=== PATIENT | male | born 1935 | race Caucasian/White ===

== ENCOUNTER 2018-03-29 10:53 | Outpatient (CLI) | payer MEDICARE, BC ==
[~2018-03-29] VITALS: Ht 182.9 cm; Wt 84.1 kg
--- NOTE | ~2018-03-29 | HEMODYNAMI ---
PATIENT:LINNEA HERRERA MEDICAL RECORD: [id number] : 33 LOCATION:[facility] ADMISSION DATE: 03/29/18 Generatedon:03/29/201813:32 Patient name: LINNEA HERRERA Patient #: [id number] SSN: D OB: 1935 Date of study: 03/29/2018 Page: Of Hemodynamic Procedure Report Patient Data Patient Demographics Procedure consent was obtained First Name: LINNEA Gender: Male Last Name: JAVIER : 1935 Patient #: [id number] Age: 82 year(s) Race: Additional ID: [id number] Contact details [address]: [address] [place], [place] [address] State: [place] City: [place] Zip code: [address] Admission Admission Data Admission Date: 03/29/2018 Admission Time: 10:53 Procedure Procedure Types Cath Procedure Diagnostic Procedure LHC LHC w/Coronaries Sedation Charges Moderate Sedation up to 15 minutes Procedure Description Procedure Date Procedure Date: 03/29/2018 Procedure Start Time: 13:03 Procedure End Time: 13:29 Procedure Staff Name Function Ulises Barrientos MD Performing Physician Temi Corley RT Monitor Jimmy Malloy RT Scrub Clifton Paz RN Nurse Procedure Data Cath Procedure Fluoroscopy Diagnostic fluoroscopy Total fluoroscopy Time: 5.2 time: 5.2 min min Diagnostic fluoroscopy Total fluoroscopy dose: dose: 1098 mGy 1098 mGy Contrast Material Contrast Material Type Amount (ml) Isovue 300 97 Entry Location Entry Primary Successful Side Size Upsize Upsize Entry Closure Arreguin ccessful Closure Location (Fr) 1 (Fr) 2 (Fr) Remarks Device Remarks Radial Right 6 Fr Mechanical artery Short Compression Estimated blood loss: 5 ml Procedure Complications No complications Procedure Medications Medication Administration Route Dosage 0.9% NaCl I.V. 100 ml/hr Oxygen etCO2 Nasal cannula 2 l/min Heparin Flush Bag added to field 2 bags (1000units/500ml NS) Lidocaine 2% added to field 20 Radial Cocktail added to field 1 syringe (Verapomil 2mg/Nitro 400mcg/Heparin 1500units) Versed I.V. 2 mg Fentanyl I.V. 100 mcg Radial Cocktail I.A. 1 syringe (Verapomil 2mg/Nitro 400mcg/Heparin 1500units) Hemodynamics Rest Heart Rate: 73 (bpm) Pressure Samples Time Site Value (mmHg) Purpose Heart Use Rate(bpm) 13:08 LV 132/-4,12 Snapshot 80 13:09 AO 128/60(86) Pullback 79 13:09 LV 130/-7,16 Pullback 79 Gradients Valve Time Site 1 Site 2 Mean SEP/DFP Peak To Heart Use (mmHg) (sec/min) Peak Rate (mmHg) (bpm) Aortic 13:09 LV AO 8 23 2 79 130/-7,16 128/60(86) Calculations Valve P-P Mean Valve Index Valve Source Name Gradient Area Flow (cm2) Aortic 2 8 2 8 Snapshots Pre Cath Intra NCS Post Cath Vital Signs Time Heart Resp SPO2 etCO2 NIBP (mmHg) Rhythm Pain Sedation Rate (ipm) (%) (mmHg) Status Level (bpm) 12:52:57 72 18 100 28.4 149/78(117) NSR 0 (11) 10(A) , No pain 12:57:14 76 21 100 9.7 134/71(117) NSR 0 (11) 10(A) , No pain 13:01:23 73 20 98 23.9 147/71(112) NSR 0 (11) 10(A) , No pain 13:05:40 76 17 97 28.4 146/70(97) NSR 0 (11) 10(A) , No pain 13:09:55 75 20 95 25.4 121/66(94) NSR 0 (11) 9(A) , No pain 13:14:05 79 17 95 17.9 118/60(91) NSR 0 (11) 9(A) , No pain 13:18:13 76 21 96 23.9 119/64(85) NSR 0 (11) 9(A) , No pain 13:22:19 76 17 98 23.9 122/67(91) NSR 0 (11) 9(A) , No pain 13:26:27 75 18 97 26.9 118/66(88) NSR 0 (11) 9(A) , No pain Medications Time Medication Route Dose Verified Delivered Reason Notes Effectiveness by by 12:49:51 0.9% NaCl I.V. 100 Clifton Clifton Per ml/hr Jackson Paz physician RN RN 12:50:08 Oxygen etCO2 2 l/min Clifton Clifton Per Nasal Jackson gatica cannula RN RN 12:50:21 Heparin Flush added 2 bags Clifton Clifton used for Bag to Jackson Paz procedure (1000units/500ml field RN RN NS) 12:50:38 Lidocaine 2% added 20ml Clifton Clifton for local to vial Lorigan Jackson anesthetic field RN RN 12:51:04 Radial Cocktail added 1 Clifton Clifton used for (Verapomil to syringe Jackson Paz procedure 2mg/Nitro field RN RN 400mcg/Heparin 1500units) 13:01:37 Versed I.V. 2 mg Clifton Clifton for sedation Jackson Paz RN RN 13:01:46 Fentanyl I.V. 100 mcg Clifton Clifton for sedation Jackson Paz RN RN 13:08:01 Radial Cocktail I.A. 1 Clifton Ulises for (Verapomil syringe Jackson Barrientos MD vasodilation 2mg/Nitro RN 400mcg/Heparin 1500units) Procedure Log Time Note 12:32:41 Informed consent obtained and on chart 12:32:49 Diagnostic Cath Status : Elective 12:33:56 Jimmy Malloy RT(R) sent for patient. Start room use. 12:33:57 Time tracking: Regular hours (M-F 7:00 - 5:00) 12:34:01 Plan of Care:Hemodynamics will remain stable., Cardiac rhythm will remain stable., Comfort level will be maintained., Respiratory function will remain adequate., Patient/ family verbilizes understanding of procedure., Procedure tolerated without complication., Recovers from procedure without complications.. 12:40:49 Patient received from Pre/Post Procedure Room to CCL 2 Alert and oriented. Tansferred to table in Supine position. 12:40:50 Warm blankets applied, and stewart hugger turned on for patient comfort. 12:40:51 Correct patient and procedure confirmed by team. 12:40:51 ECG and BP/O2 sat monitors applied to patient. 12:49:51 0.9% NaCl 100 ml/hr I.V. was administered by Clifton Lorigan RN; Per physician; 12:50:08 Oxygen 2 l/min etCO2 Nasal cannula was administered by Clifton Paz RN; Per physician; 12:50:21 Heparin Flush Bag (1000units/500ml NS) 2 bags added to field was administered by Clifton Paz RN; used for procedure; 12:50:38 Lidocaine 2% 20ml vial added to field was administered by Clifton Paz RN; for local anesthetic; 12:51:04 Radial Cocktail (Verapomil 2mg/Nitro 400mcg/Heparin 1500units) 1 syringe added to field was administered by Clifton Paz RN; used for procedure; 12:51:48 Vital chart was started 12:51:49 Baseline sample Acquired. 12:51:53 Rhythm: sinus rhythm 12:51:54 Full Disclosure recording started 12:51:58 H&P Date Dictated: 03/29/2018 Within 30 days and on chart., H&P Addendum completed by physician on day of procedure. (MUST COMPLETE FOR ALL OUTPATIENTS). 12:52:00 Pre-procedure instructions explained to patient. 12:52:00 Pre-op teaching completed and patient verbalized understanding. 12:52:01 Family in waiting room. 12:52:03 Patient NPO since Midnight. 12:52:05 Is the patient allergic to Iodine/contrast media? No. 12:52:06 Was the patient premedicated? No 12:55:29 Is patient on blood thinner?No 12:55:30 Patient diabetic? No. 12:55:44 Previous problem with sedation/anesthesia? No ? 12:55:46 Snore? Yes 12:55:47 Sleep apnea? No 12:55:48 Deviated septum? No 12:55:48 Opens mouth fully? Yes 12:55:49 Sticks out tongue? Yes 12:55:52 Airway obstruction? Yes copd 12:55:56 Dentures? Yes in tight 12:55:59 Pre procedure: right dorsailis pedis pulse 2+ Normal; easily identifiable; not easily obliterated 12:56:01 Pre procedure: left dorsailis pedis pulse 2+ Normal; easily identifiable; not easily obliterated 12:56:03 Patient pain scale 0/10 ?. 12:56:11 IV patent on arrival in right forearm with 0.9% NaCl at [facility]. 12:56:13 Lab results completed and on chart. 12:56:18 Right Radial & Right Groin area was prepped with chlora-prep and draped in sterile fashion 12:56:19 Alarms reviewed by [facility] N. 12:56:19 Sharps counted by scrub and verified by R.N. 12:56:20 Physician arrived 12:56:21 --------ALL STOP TIME OUT------ 12:56:21 Final Timeout: patient, procedure, and site verified with staff and physician. All members of the team are in agreement. 12:56:24 Right Radial & Right Groin site verified by team. 12:56:26 Physical assessment completed. ASA score P 2 - A patient with mild systemic disease as per Ulises Barrientos MD. 12:56:30 Sedation plan: IV Moderate Sedation Medication:Versed, Fentanyl 12:56:36 Use device set Radial Dx or PCI 12:56:37 ACIST Syringe (69889) opened to sterile field. 12:56:37 Medline Cath Pack ([id number]) opened to sterile field. 12:56:37 Bag Decanter (2002S) opened to sterile field. 12:56:38 DIAGNOSTIC WIRE .035 260cm J wire (630236) opened to sterile field. 12:56:38 ACIST Hand Control (94966) opened to sterile field. 12:56:39 ACIST Manifold (58324) opened to sterile field. 12:56:39 Tegaderm 4 x 4 (1626W) opened to sterile field. 12:56:40 MBrace Wrist Support ([id number]) opened to sterile field. 12:56:41 SHEATH 6Fr Prelude Radial ([id number]) opened to sterile field. 12:59:19 Zero performed for pressure channel P1 13:01:37 Versed 2 mg I.V. was administered by Clifton Paz RN; for sedation; 13:01:46 Fentanyl 100 mcg I.V. was administered by Clifton Paz RN; for sedation; 13:02:59 Procedure started. 13:03:05 Local anesthetic to right radial artery with Lidocaine 2% by Ulises Barrientos MD.INITIAL ACCESS ONLY 13:04:15 Zero performed for pressure channel P1 13:06:51 A 6 Fr Short sheath was inserted into the Right Radial artery 13:07:10 5 Fr ultimate performa 1 guide catheter was inserted over the wire 13:08:01 Radial Cocktail (Verapomil 2mg/Nitro 400mcg/Heparin 1500units) 1 syringe I.A. was administered by Ulises Barrietnos MD; for vasodilation; 13:08:49 LV hemodynamics recorded. 13:08:50 LV gram done using SLATER 13:08:53 Injector settings: Ml/sec: 5, Volume: 15, 13:09:28 EF : 60 % 13:10:27 LCA angiography performed. 13:10:30 Injector settings: Ml/sec: 3, Volume: 6, 13:13:02 RCA angiography performed. 13:13:06 Injector settings: Ml/sec: 3, Volume: 6, 13:25:16 Catheter removed. 13:25:20 TR BAND Standard ([id number]) opened to sterile field. 13:27:16 Sheath removed intact; hemostasis achieved with Mechanical Compression to the Right Radial artery. 13:27:21 Procedure ended.(Physican Out) 13:27:33 Fluoroscopy time 05.20 minutes. 13:27:40 Fluoroscopy dose: 1098 mGy 13:27:40 Flurop Dose total: 1098 13:28:30 Contrast amount:Isovue 300 97ml. 13:28:31 Sharps counted by scrub and verified by R.N. 13:28:34 TR band inflated with 10cc of air. 13:28:35 Insertion/operative site no bleeding no hematoma. 13:28:40 Post right radial artery:stable 13:28:43 Post Procedure Pulses reassessed and unchanged 13:28:45 Post procedure rhythm: unchanged. 13:28:48 Estimated blood loss: 5 ml 13:28:49 Post procedure instruction explained to patient.Patient verbalizes understanding. 13:28:49 Patient needs reinforcement of post procedure teaching. 13:29:00 Procedure type changed to Cath procedure, Diagnostic procedure, LHC, LHC w/Coronaries, Sedation Charges, Moderate Sedation up to 15 minutes 13:29:01 Procedure and supply charges have been captured, reviewed, submitted and are correct. 13:29:05 Procedure Complication : No complications 13:29:08 Vital chart was stopped 13:29:08 See physician's report for complete and final results. 13:29:11 Report given to Pre/Post Procedure Room. 13:29:14 Patient transfered to Pre/Post Procedure Room with Stretcher. 13:29:16 Procedure ended. 13:29:16 Full Disclosure recording stopped 13:29:25 End room use (Document Last) Device Usage Item Name Manufacture Quantity Catalog Number Hospital Part Current M inimal Lot# / Charge Number Stock Stock Serial# Code ACIST Syringe Acist 1 43252 308743 965311 717348 2 0 (34629) [employer] Medline Cath Medline 1 [id number] 752110 21487 438645 5 Pack ([id number]) Bag Decanter Microtek 1 2001S 293585 40605 359957 5 (2001S) [employer]. DIAGNOSTIC WIRE [place] 1 [id number] 350459 147427 420328 3 0 .035 260cm J wire (630154) ACIST Hand Acist 1 97538 007865 669075 051432 5 Control (40299) [employer] ACIST Manifold Acist 1 22021 549664 789607 966172 5 (80430) [employer] Tegaderm 4 x 4 3M 1 1626W 982430 383984 331569 5 (1626W) MBrace Wrist Advanced 1 140-0250-00 794550 85721 919840 5 Support Vascular ([id number]) Dynamics SHEATH 6Fr Merit 1 [id number] 685249 766270 240823 5 Prelude Radial Medical ([id number]) TR BAND Terumo 1 [id number] 154859 606765 870282 4 0 Standard ([id number]) Signature Audit [place] Stage Time Signature Unsigned Intra-Procedure 03/29/2018 Temi Corley 1:32:13 PM RT(R) Signatures Monitor : Temi Corley RT Signature : Date : Time : [facility] [address] [place] [id number]
[2018-03-29 11:16] VITALS: BP 171/80; Ht 182.9 cm; Wt 84.1 kg
[2018-03-29 11:40] LABS: BASOPHILS 0.6 % (0-2); EOSINOPHILS 3.8 % (0-7); HEMATOCRIT 48.8 % (42.0-54.0); HEMOGLOBIN 16.2 g/dL (13.5-17.5); IMMATURE GRANULOCYTES 0.2 % (0-5); LYMPHOCYTES 40.8 % (15-50); MCH 30.5 pg (26.0-34.0); MCHC 33.2 g/dL (31.0-37.0); MCV 91.7 fL (80.0-100.0); MEAN PLATELET VOLUME 10.3 fL (7.4-10.4); MONOCYTES 9.9 % (2-11); NEUTROPHILS 44.7 % (40-80); PLATELET COUNT 160 10x3/uL (130-400); RBC 5.32 10x6/uL (4.20-6.10); RDW 15.4 % (11.5-14.5); WBC 6.4 10x3/uL (4.8-10.8)
[2018-03-29 12:03] LABS: ANION GAP 9.3 mmol/L (8-16); CALCIUM 9.5 mg/dL (8.5-10.1); CREATININE - SERUM 1.3 mg/dL (0.6-1.3); POTASSIUM - SERUM 4.3 mmol/L (3.5-5.1)
== END 2018-03-29 15:45 | disposition home or self-care (01) ==
LOC: D.CATH 10:53
PROVIDERS: Internal Medicine Cardiovascular Disease
DX: R55 Syncope and collapse (principal); I25.10 Atherosclerotic heart disease of native coronary artery without angina pectoris; Z01.812 Encounter for preprocedural laboratory examination

== ENCOUNTER 2018-04-21 06:39 | Outpatient (CLI) | payer MEDICARE, BC ==
[~2018-04-21] VITALS: Ht 182.9 cm; Wt 85.0 kg
--- NOTE | ~2018-04-21 | HEMODYNAMI ---
PATIENT:LINNEA HERRERA MEDICAL RECORD: [id number] : 33 LOCATION:[facility] ADMISSION DATE: 04/21/18 Generatedon:04/21/201810:29 Patient name: LINNEA HERRERA Patient #: [id number] SSN: D OB: 1935 Date of study: 04/21/2018 Page: Of Hemodynamic Procedure Report Patient Data Patient Demographics Procedure consent was obtained First Name: LINNEA Gender: Male Last Name: JAVIER : 1935 Patient #: [id number] Age: 82 year(s) Race: Additional ID: [id number] Contact details Address: [address] State: [place] City: [place] Zip code: [address] Past Medical History Allergies: No known allergies Admission Admission Data Admission Date: 04/21/2018 Admission Time: 6:39 Lab Results Lab Result Date: 04/21/2018 Lab Result Time: 0:00 Biochemistry Name Units Result Min Max BUN mg/dl 19 --(----)*- 7 18 Creatinine mg/dl 1.4 --(----)*- 0.6 1.3 CBC Name Units Result Min Max Hemoglobin g/dl 15.6 --(--*-)-- 13.5 17.5 Procedure Procedure Types Cath Procedure Diagnostic Procedure Sedation Charges Moderate Sedation up to 15 minutes PCI Procedure Coronary Stent Coronary Stent Initial Coronary Stent Additional Procedure Description Procedure Date Procedure Date: 04/21/2018 Procedure Start Time: 10:04 Procedure End Time: 10:29 Procedure Staff Name Function Ulises Barrientos MD Performing Physician Madhuri Pina RT Monitor Daphne Linclon RN Nurse Jyotsna Wilkinson RT Scrub Procedure Data Cath Procedure Fluoroscopy Diagnostic fluoroscopy Total fluoroscopy Time: 5.3 time: 5.3 min min Diagnostic fluoroscopy Total fluoroscopy dose: 606 dose: 606 mGy mGy Contrast Material Contrast Material Type Amount (ml) Isovue 300 83 Entry Location Entry Primary Successful Side Size Upsize Upsize Entry Closure Arreguin ccessful Closure Location (Fr) 1 (Fr) 2 (Fr) Remarks Device Remarks Radial Right 6 Fr Mechanical artery Short Compression Estimated blood loss: 10 ml Procedure Complications No complications Procedure Medications Medication Administration Route Dosage 0.9% NaCl I.V. 100 ml/hr Oxygen etCO2 Nasal cannula 2 l/min Lidocaine 2% added to field 20 Heparin Flush Bag added to field 2 bags (1000units/500ml NS) Radial Cocktail added to field 1 syringe (Verapomil 2mg/Nitro 400mcg/Heparin 1500units) Versed I.V. 2 mg Fentanyl I.V. 50 mcg Heparin Bolus I.V. 8500 units Versed I.V. 2 mg Fentanyl I.V. 50 mcg Nitroglycerin IC/IA I.C. 100 mcg Hemodynamics Rest HGB: 15.6 (g/dl) Heart Rate: 79 (bpm) Snapshots Pre Cath Intra NCS Post Cath Vital Signs Time Heart Resp SPO2 etCO2 NIBP (mmHg) Rhythm Pain Sedation Rate (ipm) (%) (mmHg) Status Level (bpm) 9:45:43 79 21 98 32.8 143/83(117) NSR 0 (11) 10(A) , No pain 9:50:04 82 23 100 28.3 144/78(121) NSR 0 (11) 10(A) , No pain 9:54:21 82 22 98 30 130/72(105) NSR 0 (11) 10(A) , No pain 9:58:44 75 20 97 29.8 136/67(100) NSR 0 (11) 10(A) , No pain 10:03:00 84 18 97 32 135/76(96) NSR 0 (11) 10(A) , No pain 10:07:20 84 18 98 26.4 123/63(80) NSR 0 (11) 10(A) , No pain 10:11:38 83 17 96 28.9 113/61(80) NSR 0 (11) 10(A) , No pain 10:15:52 83 19 96 28.9 112/62(90) NSR 0 (11) 9(A) , No pain 10:20:04 83 20 97 15.6 107/60(76) NSR 0 (11) 9(A) , No pain 10:24:09 81 20 96 24.4 109/62(84) NSR 0 (11) 9(A) , No pain 10:28:25 79 19 98 17.1 108/61(85) NSR 0 (11) 10(A) , No pain Medications Time Medication Route Dose Verified Delivered Reason Not es Effectiveness by by 9:39:41 0.9% NaCl I.V. 100 Ulises Daphne used for ml/hr Floyd Lincoln elevator worker 9:39:48 Oxygen etCO2 2 l/min Ulises Daphne used for Nasal Floyd Lincoln procedure cannula RN 9:39:54 Lidocaine 2% added 20ml Ulises Ulises for local to vial Floyd Barrientos MD anesthetic field 9:39:58 Heparin Flush added 2 bags Ulises Ulises used for Bag to Floyd Barreintos MD procedure (1000units/500ml field NS) 9:50:27 Radial Cocktail added 1 Ulises Ulises used for (Verapomil to syringe Floyd Barrientos MD procedure 2mg/Nitro field 400mcg/Heparin 1500units) 10:02:23 Versed I.V. 2 mg Ulises Daphne for sedation Floyd Lincoln RN 10:02:30 Fentanyl I.V. 50 mcg Ulises Daphne for sedation Floyd Lincoln RN 10:08:01 Heparin Bolus I.V. 8500 Ulises Daphne for mary ified units Floyd Lincoln anticoagulation with Dr. CHALINO Barrientos 10:11:26 Versed I.V. 2 mg Ulises Daphne for sedation Floyd Lincoln RN 10:11:30 Fentanyl I.V. 50 mcg Ulises Daphne for sedation Floyd Lincoln RN 10:22:09 Nitroglycerin I.C. 100 mcg Ulises Daphne for IC/IA Floyd lam RN Procedure Log Time Note 9:28:49 Time tracking: Regular hours (M-F 7:00 - 5:00) 9:28:54 Plan of Care:Hemodynamics will remain stable., Cardiac rhythm will remain stable., Comfort level will be maintained., Respiratory function will remain adequate., Patient/ family verbilizes understanding of procedure., Procedure tolerated without complication., Recovers from procedure without complications.. 9:33:42 Madhuri Pina RT(R) sent for patient. Start room use. 9:39:02 Patient received from Pre/Post Procedure Room to CCL 1 Alert and oriented. Tansferred to table in Supine position. 9:39:03 Warm blankets applied, and stewart hugger turned on for patient comfort. 9:39:03 Correct patient and procedure confirmed by team. 9:39:05 Signed procedure consent form obtained from patient. 9:39:06 ECG and BP/O2 sat monitors applied to patient. 9:39:06 Full Disclosure recording started 9:39:41 0.9% NaCl 100 ml/hr I.V. was administered by Daphne Lincoln RN; used for procedure; 9:39:48 Oxygen 2 l/min etCO2 Nasal cannula was administered by Daphne Lincoln RN; used for procedure; 9:39:54 Lidocaine 2% 20ml vial added to field was administered by Ulises Barrientos MD; for local anesthetic; 9:39:58 Heparin Flush Bag (1000units/500ml NS) 2 bags added to field was administered by Ulises Barrientos MD; used for procedure; 9:44:36 Vital chart was started 9:47:30 Baseline sample Acquired. 9:47:33 Rhythm: sinus rhythm 9:47:36 Pre-procedure instructions explained to patient. 9:47:36 Pre-op teaching completed and patient verbalized understanding. 9:47:38 Family in patients room. 9:47:40 Patient NPO since Midnight. 9:47:44 Patient allergic to No known allergies 9:47:46 Is the patient allergic to Iodine/contrast media? No. 9:47:47 Is patient on blood thinner?No 9:47:48 Patient diabetic? No. 9:47:52 Previous problem with sedation/anesthesia? No ? 9:47:53 Snore? No 9:47:54 Sleep apnea? No 9:47:55 Deviated septum? No 9:47:56 Opens mouth fully? Yes 9:47:56 Sticks out tongue? Yes 9:47:58 Airway obstruction? No ? 9:48:02 Dentures? Yes IN TIGHT 9:48:05 Modified Taz's test Ulnar < 7 seconds 9:48:06 Patient pain scale 0/10 ?. 9:48:11 IV patent on arrival in left hand with 0.9% NaCl at [facility]. 9:48:17 Right Radial & Right Groin area was prepped with chlora-prep and draped in sterile fashion 9:48:18 Alarms reviewed by R. N. 9:48:18 Sharps counted by scrub and verified by R.N. 9:49:14 Lab Result : BUN 19 mg/dl 9:49:14 Lab Result : Hemoglobin 15.6 g/dl 9:49:14 Lab Result : Creatinine 1.4 mg/dl 9:49:16 Lab results completed and on chart. 9:50:27 Radial Cocktail (Verapomil 2mg/Nitro 400mcg/Heparin 1500units) 1 syringe added to field was administered by Ulises Barrientos MD; used for procedure; 9:54:51 Use device set Radial Dx or PCI 9:54:52 ACIST Syringe (09688) opened to sterile field. 9:54:54 Bag Decanter (2002S) opened to sterile field. 9:54:55 ACIST Hand Control (44211) opened to sterile field. 9:54:55 ACIST Manifold (81122) opened to sterile field. 9:54:56 Tegaderm 4 x 4 (1626W) opened to sterile field. 9:55:00 Medline Cath Pack ([id number]) opened to sterile field. 9:55:00 DIAGNOSTIC WIRE .035 260cm J wire (796001) opened to sterile field. 9:55:03 MBrace Wrist Support ([id number]) opened to sterile field. 9:55:05 SHEATH 6FR Slender (80-6140) opened to sterile field. 9:55:45 NEEDLE Cook 21G 4cm Radial ([id number]) opened to sterile field. 9:55:45 BMW 300cm Straight [place] 2 wire ([id number]) opened to sterile field. 9:55:46 INFLATOR Merit BasixCompak (NX5299) opened to sterile field. 9:55:46 TUBING High Pressure Extension Tubing (Floyd) ([id number]) opened to sterile field. 10:01:11 --------ALL STOP TIME OUT------ 10:01:12 Final Timeout: patient, procedure, and site verified with staff and physician. All members of the team are in agreement. 10:01:14 Right Radial & Right Groin site verified by team. 10:01:16 Physical assessment completed. ASA score P 2 - A patient with mild systemic disease as per Ulises Barrientos MD. 10::19 Sedation plan: IV Moderate Sedation Medication:Versed, Fentanyl 10:02:11 Zero performed for pressure channel P1 10::23 Versed 2 mg I.V. was administered by Daphne Lincoln RN; for sedation; 10::30 Fentanyl 50 mcg I.V. was administered by Daphne Lincoln RN; for sedation; 10:03:37 Procedure started. 10:03:59 Zero performed for pressure channel P1 10:04:11 Local anesthetic to right radial artery with Lidocaine 2% by Ulises Barrientos MD.INITIAL ACCESS ONLY 10:04:53 A 6 Fr Short sheath was inserted into the Right Radial artery 10:05:13 6F TONGUE AND QUARTER STITCHER GUIDE OPENED TO THE FIELD 10::35 6 Fr TONGUE AND QUARTER STITCHER guide catheter was inserted over the wire 10:08: Heparin Bolus 8500 units I.V. was administered by Daphne Lincoln RN; for anticoagulation; verified with Dr. Barrientos 10:08:39 BMW 300 wire advanced. 10::46 Wire advanced across lesion. 10::26 Versed 2 mg I.V. was administered by Daphne Lincoln RN; for sedation; 10::30 Fentanyl 50 mcg I.V. was administered by Daphne Lincoln RN; for sedation; 10:12:26 Place stent Inflation Number: 1 A INTEGRITY OTW 3.0 X 18 stent ([id number]) was prepped and advanced across the Prox LAD. The stent was deployed at 16 KHOA for 0:10 (min:sec). 10:12:48 Stent catheter was removed intact over wire. 10:12:55 Wire redirected to CIRC. 10:17:19 Place stent Inflation Number: 1 A INTEGRITY OTW 3.5 X 18 stent ([id number]) was prepped and advanced across the Mid CX. The stent was deployed at 14 KHOA for 0:10 (min:sec). 10:19:21 Stent catheter was removed intact over wire. 10:22:09 Nitroglycerin IC/IA 100 mcg I.C. was administered by Daphne Lincoln RN; for vasodilation; 10:24:52 Wire removed. 10:24:54 Guide catheter removed. 10:25:07 TR BAND Standard ([id number]) opened to sterile field. 10:25:13 Procedure ended.(Physican Out) 10:26:03 Sheath removed intact; hemostasis achieved with Mechanical Compression to the Right Radial artery. 10:26:08 Fluoroscopy time 05.30 minutes. 10::13 Flurop Dose total: 606 10:: Fluoroscopy dose: 606 mGy 10::16 Contrast amount:Isovue 300 83ml. 10:26:19 TR band inflated with 12cc of air. 10:26:23 Post-procedure physical assessment completed. ASA score P 2 - A patient with mild systemic disease as per Ulises Barrientos MD. 10::26 Post procedure rhythm: sinus rhythm 10::32 Estimated blood loss: 10 ml 10::33 Post procedure instruction explained to patient.Patient verbalizes understanding. 10::34 Patient needs reinforcement of post procedure teaching. 10:27:13 Procedure type changed to Cath procedure, Diagnostic procedure, Sedation Charges, Moderate Sedation up to 15 minutes, PCI procedure, Coronary Stent, Coronary Stent Initial, Coronary Stent Additional 10:28:47 Procedure and supply charges have been captured, reviewed, submitted and are correct. 10:28:59 Procedure Complication : No complications 10:29:02 Vital chart was stopped 10::02 See physician's report for complete and final results. 10:29:03 Report given to Pre/Post Procedure Room. 10:29:06 Patient transfered to Pre/Post Procedure Room with Bed. 10:29:08 Procedure ended. 10:29:08 Full Disclosure recording stopped 10:29:10 End room use (Document Last) Intervention Summary Intervention Notes Time ActionType Lesion and Equipment Action# Pressure Duration Attributes Used 10:12:26 Place stent Prox LAD INTEGRITY 1 16 00:10 OTW 3.0 X 18 stent ([id number]) 10:17:19 Place stent Mid CX INTEGRITY 1 14 00:10 OTW 3.5 X 18 stent ([id number]) Device Usage Item Name Manufacture Quantity Catalog Hospital Part Current Minimal Lot# / Number Charge Number Stock Stock Serial# Code ACIST Acist 1 96290 914598 215102 [id number] 20 Syringe Szl.it (80919) [employer] Bag Microtek 1 211244 25227 484983 5 Decanter Medical Inc. () ACIST Hand Acist 1 20771 679018 903348 848713 5 Control Szl.it (06838) Systems Inc ACIST Acist 1 96236 476281 293229 608492 5 Manifold Medical (68850) Systems Inc Tegaderm 4 3M 1 1626W 816917 288149 178961 5 x 4 (1626W) Medline Medline 1 [id number] 936412 88077 570998 5 Cath Pack ([id number]) DIAGNOSTIC St [place] 1 317508 136212 236025 774896 30 WIRE .035 260cm J wire (742580) MBrace Advanced 1 140-0250-00 958759 93829 603705 5 Wrist Vascular Support Dynamics ([id number]) SHEATH 6FR Terumo 1 [id number] 487150 995620 376893 40 Slender (80-1060) NEEDLE Cook Cook Medical 1 D44539 116274 758738 382372 5 21G 4cm Radial (I97966) BMW 300cm Schmitz 1 0428177 815134 214291 864361 5 Straight Vascular [place] 2 wire (2819469) INFLATOR Merit 1 DX0580 642877 343282 509844 15 Merit Medical BasixCompak (CW8363) TUBING High Merit 1 [id number] 009770 99138 218947 10 Pressure Medical Extension Tubing (Barrientos) ([id number]) INTEGRITY Medtronic 1 [id number] 323633 110284 2 [id number] OTW 3.0 X 18 stent ([id number]) INTEGRITY Medtronic 1 [id number] 976456 831265 4 [id number] OTW 3.5 X 18 stent ([id number]) TR BAND Terumo 1 [id number] 959482 051035 230566 40 Standard ([id number]) Signature Audit Wilsey Stage Time Signature Unsigned Intra-Procedure 04/21/2018 Madhuri Pina 10:29:56 AM RT(R) Signatures Monitor : Madhuri Pina Signature : RT Date : Time : [facility] [address] [place] [address]
[2018-04-21 07:34] VITALS: BP 158/71; Ht 182.9 cm; Wt 85.0 kg
[2018-04-21 07:48] LABS: EOSINOPHILS 6.7 % (0-7); HEMATOCRIT 47.5 % (42.0-54.0); HEMOGLOBIN 15.6 g/dL (13.5-17.5); IMMATURE GRANULOCYTES 0.2 % (0-5); LYMPHOCYTES 34.1 % (15-50); MCH 30.2 pg (26.0-34.0); MCHC 32.8 g/dL (31.0-37.0); MCV 92.1 fL (80.0-100.0); MEAN PLATELET VOLUME 10.2 fL (7.4-10.4); MONOCYTES 10.2 % (2-11); NEUTROPHILS 47.8 % (40-80); PLATELET COUNT 181 10x3/uL (130-400); RBC 5.16 10x6/uL (4.20-6.10); RDW 15.3 % (11.5-14.5); WBC 6.2 10x3/uL (4.8-10.8)
[2018-04-21 07:56] LABS: ANION GAP 10.7 mmol/L (8-16); CALCIUM 9.4 mg/dL (8.5-10.1); CARBON DIOXIDE 32.1 mmol/L (21.0-32.0); CREATININE - SERUM 1.4 mg/dL (0.6-1.3); POTASSIUM - SERUM 4.8 mmol/L (3.5-5.1)
[2018-04-21] MEDS ORDERED: PLAVIX75 MG PO (11:02)
[2018-04-21] MEDS ORDERED: ASPIRIN81 MG PO (11:02)
== END 2018-04-21 16:20 | disposition home or self-care (01) ==
LOC: D.CATH 06:39
PROVIDERS: Internal Medicine Cardiovascular Disease
DX: I25.119 Atherosclerotic heart disease of native coronary artery with unspecified angina pectoris (principal); Z01.812 Encounter for preprocedural laboratory examination